=== PATIENT | male | born 1955 | race Caucasian/White ===

== ENCOUNTER 2016-10-09 12:57 | Emergency (ER) | payer BC ==
[~2016-10-09] VITALS: Ht 170.2 cm; Wt 124.7 kg
[2016-10-09] MEDS ORDERED: ASPI81CH PO (13:12)
[2016-10-09] MEDS ORDERED: LOSA100T PO (13:12)
[2016-10-09] MEDS ORDERED: METOPROLOL 5 MG/5 ML VIAL IV ONE (13:30)
[2016-10-09] MEDS ORDERED: METOPROLOL TART 25 MG TABLET PO ONE (14:00)
[2016-10-09 14:16] LABS: BASO % 0.7 % (0.0-1.0); EOS # 0.2 K/mm3 (0.0-0.50); EOS % 3.6 % (0.0-3.0); LARGE UNSTAINED CELL # 0.1 K/mm3 (0.0-0.4); LARGE UNSTAINED CELL % 1.3 % (0.0-4.0); LYMPH # 1.8 K/mm3 (1.5-4.5); LYMPH % 25.1 % (24.0-44.0); MEAN CORPUSCULAR HEMOGLOBIN 32.3 pg (27.0-33.0); MEAN CORPUSCULAR HGB CONC 33.6 g/dl (32.0-36.5); MEAN CORPUSCULAR VOLUME 96.3 fl (80.0-96.0); MONO # 0.4 K/mm3 (0.0-0.8); MONO % 6.3 % (0.0-5.0); NEUTROPHILS # 4.4 K/mm3 (1.8-7.7); NEUTROPHILS % 63.1 % (36.0-66.0); PLATELET COUNT, AUTOMATED 206 k/mm3 (150-450); RED CELL DISTRIBUTION WIDTH 13.6 % (11.5-14.5); WHITE BLOOD COUNT 6.9 K/mm3 (4.0-10.0)
--- NOTE | 2016-10-09 14:27 | REP ---
Clinical: Chest pain . Comparison: None . Findings: The mediastinum and cardiac silhouette are stable and within normal limits for portable technique. The lung childs are clear without acute consolidation, effusion, or pneumothorax. Skeletal structures are intact. Impression: Normal portable chest x-ray Signed by Mihir Bruce MD 10/09/2016 02:19 P
[2016-10-09 14:41] LABS: ALBUMIN 3.2 GM/DL (3.2-5.2); ALKALINE PHOSPHATASE 94 U/L (45-117); ALT/SGPT 22 U/L (12-78); ANION GAP 5 MEQ/L (8-16); AST/SGOT 12 U/L (15-37); BILIRUBIN,DIRECT 0.1 MG/DL (0.0-0.2); BILIRUBIN,TOTAL 0.6 MG/DL (0.2-1.0); BLOOD UREA NITROGEN 22 MG/DL (7-18); CALCIUM LEVEL 8.6 MG/DL (8.8-10.2); CARBON DIOXIDE LEVEL 31 MEQ/L (21-32); CHLORIDE LEVEL 107 MEQ/L (98-107); CREATININE FOR GFR 1.28 MG/DL (0.70-1.30); FREE T4 0.95 NG/DL (0.76-1.46); GLOMERULAR FILTRATION RATE > 60.0 (>49); GLUCOSE, FASTING 118 MG/DL (80-110); POTASSIUM SERUM 4.4 MEQ/L (3.5-5.1); SODIUM LEVEL 143 MEQ/L (136-145); TOTAL PROTEIN 6.1 GM/DL (6.4-8.2)
[2016-10-09] MEDS ORDERED: [UNRECOGNIZED DRUG - CODE] TOP (14:45)
[2016-10-09] MEDS ORDERED: NEXI20CA PO (14:45)
[2016-10-09] MEDS ORDERED: KETO0.05 TOP (14:45)
[2016-10-09] MEDS ORDERED: LOSA100T37 PO (14:45)
[2016-10-09] MEDS ORDERED: TRIA1CR TOP (14:45)
[2016-10-09] MEDS ORDERED: RIVAROXABAN 20 MG TAB (XARELTO) PO ONE (15:00)
[2016-10-09 18:39] VITALS: BP 131/67
[2016-10-09] MEDS ORDERED: METO25TAB PO (19:17)
[2016-10-09] MEDS ORDERED: XARE20TA PO (19:18)
[2016-10-09 19:30] VITALS: BP 126/66
[2016-10-09] MEDS ORDERED: METOPROLOL SUCC *XL* 25MG TAB (TopROL *XL*) PO ONE (19:30)
--- NOTE | 2016-10-09 20:07 | ECGEPIP ---
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
== END 2016-10-09 20:26 | disposition home or self-care (01) ==
LOC: M ED 14:28 → CANBEDREQ 14:40 → M ED 20:26
DX: I48.91 Unspecified atrial fibrillation (principal); F17.210 Nicotine dependence, cigarettes, uncomplicated; I10 Essential (primary) hypertension; E78.4 Other hyperlipidemia